=== PATIENT | female | born 1960 | race Caucasian/White ===

== ENCOUNTER 2016-07-16 07:04 | Day surgery (SDC) | payer OTHER ==
[~2016-07-16] VITALS: Ht 157.5 cm; Wt 72.6 kg
[2016-07-16 07:42] VITALS: BP 155/93
[2016-07-16 10:25] VITALS: BP 132/82
== END 2016-07-16 10:15 | disposition home or self-care (01) ==
LOC: GI 07:04 → OR 08:30 → GI 10:15
PROVIDERS: Internal Medicine Gastroenterology
PROC: 0DBK8ZZ Excision of Ascending Colon, Via Natural or Artificial Opening Endoscopic (ICD-10-PCS; principal; 2016-07-16 08:30)
DX: Z12.11 Encounter for screening for malignant neoplasm of colon (principal); D12.2 Benign neoplasm of ascending colon; K64.8 Other hemorrhoids; Z90.710 Acquired absence of both cervix and uterus
CPT/HCPCS: 45378; J1200; J1610; J2250; J2310; J3010; J3490